=== PATIENT | male | born 1940 | race Caucasian/White ===

== ENCOUNTER 2018-02-18 15:07 | Inpatient (IN) | payer MEDICARE, OTHER ==
[~2018-02-18] VITALS: Ht 172.7 cm; Wt 79.8 kg
[~2018-02-18 15:07] MED LIST: MIDAZOLAM 1 MG/ML, 5ML ONE; PROPOFOL 10 MG/ML, 100ML IV ONE; ROCURONIUM 10 MG/ML,10ML ONE
[2018-02-18] MEDS ORDERED: SODIUM CHLORIDE FLUSH 10ML SYR IVF ONE (15:30)
[2018-02-18] MEDS ORDERED: methylPREDNISolone SOD SUCC 125 MG/2 ML IVP ONE (15:30)
[2018-02-18 15:55] LABS: ALANINE AMINOTRANSFERASE 49 U/L (12-78); ALBUMIN 3.4 g/dL (3.4-5.0); ANION GAP 8 mmol/L (5-15); CALCIUM 7.9 mg/dL (8.5-10.1); CHLORIDE 106 mmol/L (98-107); CREATININE 2.55 mg/dL (0.7-1.3)
[2018-02-18 15:59] LABS: INTERNATIONAL NORMALIZED RATIO 1.51 (0.93-1.1); PROTHROMBIN TIME 15.6 Seconds (9.6-11.5)
[2018-02-18 15:59] LABS: ALKALINE PHOSPHATASE 104 U/L (45-117); TOTAL PROTEIN 7.1 g/dL (6.4-8.2)
[2018-02-18 16:00] LABS: MEAN CORPUSCULAR HEMOGLOBIN 31.2 pg (27.5-34.5); MEAN CORPUSCULAR HGB CONC 31.5 g/dL (33.2-36.2); MEAN CORPUSCULAR VOLUME 99.1 fL (81-97); MEAN PLATELET VOLUME 9.3 fL (7.4-10.4); PLATELET COUNT 122 x10^3/uL (130-400); RED BLOOD COUNT 5.76 x10^6/uL (4.38-5.82)
[2018-02-18 16:06] LABS: TROPONIN I 0.259 ng/mL (0.000-0.045)
[2018-02-18] MEDS ORDERED: AMLO5TAB2 PO (16:10)
[2018-02-18 16:13] LABS: ANISOCYTOSIS 1+; BASOPHILS # (AUTO) 0.01 x10^3/uL (0-0.1); BASOPHILS % (AUTO) 0 % (0-1); EOSINOPHILS % (AUTO) 0 % (1-7); LYMPHOCYTES # (AUTO) 1.17 x10^3/uL (1-3.4); LYMPHOCYTES % (AUTO) 12 % (22-44); MD MORPH REVIEW ONLY; MONOCYTES # (AUTO) 0.67 x10^3/uL (0.2-0.8); MONOCYTES % (AUTO) 7 % (2-9); NEUTROPHILS # (AUTO) 7.93 x10^3/uL (1.8-6.8); NEUTROPHILS % (AUTO) 81 % (42-75); POLYCHROMASIA 1+; RED CELL DISTRIBUTION WIDTH 16.5 % (9.4-14.8)
[2018-02-18 16:14] LABS: <PLATELET ESTIMATE> ADEQUATE; <PLT MORPHOLOGY> NORMAL PLT MORPH
[2018-02-18] MEDS ORDERED: SODIUM CHLORIDE FLUSH 10ML SYR IVF PRN (17:00)
[2018-02-18] MEDS: methylPREDNISolone SOD SUCC 125 MG/2 ML IVPush SCH ×2 (18:00→22:32)
[2018-02-18] MEDS ORDERED: FENTANYL PF 100 MCG/2ML ONE (19:13)
[2018-02-18] MEDS ORDERED: PROPOFOL 100 ML IV PRN (19:42)
[2018-02-18] MEDS ORDERED: ACETAMINOPHEN 325 MG TABLET PO PRN (20:00)
[2018-02-18] MEDS ORDERED: LACTULOSE 20 GM/30 ML UDC NG PRN (20:00)
[2018-02-18] MEDS ORDERED: LIDOCAINE-MPF 1%, 2ML ENDO PRN (20:00)
[2018-02-18] MEDS ORDERED: POLYETHYLENE GLYCOL 17 GM PACKET PO PRN (20:00)
[2018-02-18] MEDS ORDERED: BISACODYL 10 MG SUPP PR PRN ×2 (20:00)
[2018-02-18] MEDS ORDERED: DOCUSATE 100 MG CAPSULE PO PRN (20:00)
[2018-02-18] MEDS ORDERED: SENNA/DOCUSATE TABLET NG PRN (20:00)
[2018-02-18] MEDS ORDERED: SENNOSIDES 8.8 MG/5 ML ORAL SOL NG PRN (20:00)
[2018-02-18] MEDS ORDERED: PHARMACY MAY ADJ FOR RENAL FX MC SCH (20:00)
[2018-02-18] MEDS ORDERED: hydrALAzine 20 MG/ML, 1ML IVPush PRN (20:00)
[2018-02-18] MEDS ORDERED: FENTANYL PF 100 MCG/2ML IVPush PRN (20:00)
[2018-02-18 20:34] LABS: TROPONIN I 0.235 ng/mL (0.000-0.045)
[2018-02-18] MEDS ORDERED: FAMOTIDINE 20 MG/2 ML IVPush SCH (21:00)
[2018-02-18] MEDS ORDERED: CEFTRIAXONE 2 GM in SODIUM CHLORIDE 0.9% 50 ML IV SCH (21:00)
[2018-02-18] MEDS: HEPARIN 5,000 UNITS/ML, 1ML SQ SCH (22:33)
[2018-02-18] MEDS: CEFTRIAXONE 2 GM in DEXTROSE 5% 50 ML IV SCH (22:34)
[2018-02-18] MEDS: ALBUTEROL/IPRATROPIUM 2.5MG/0.5MG, 3 ML INLINE SCH (23:00)
[2018-02-18] MEDS: AZITHROMYCIN 500 MG in SODIUM CHLORIDE 0.9% 250 ML IV SCH (23:25)
[2018-02-19] MEDS ORDERED: THIAMINE 200 MG in SODIUM CHLORIDE 0.9% 50 ML IV ONE (01:30)
[2018-02-19 01:42] VITALS: BP 101/58
[2018-02-19] MEDS: methylPREDNISolone SOD SUCC 125 MG/2 ML IVPush SCH ×5 (02:15→20:59)
[2018-02-19] MEDS: ALBUTEROL/IPRATROPIUM 2.5MG/0.5MG, 3 ML INLINE SCH ×6 (03:00→21:00)
[2018-02-19 03:05] LABS: BASOPHILS % (AUTO) 0 % (0-1); EOSINOPHILS % (AUTO) 0 % (1-7); LYMPHOCYTES # (AUTO) 0.58 x10^3/uL (1-3.4); LYMPHOCYTES % (AUTO) 8 % (22-44); MD NO; MEAN CORPUSCULAR HGB CONC 32.9 g/dL (33.2-36.2); MEAN CORPUSCULAR VOLUME 97.2 fL (81-97); MEAN PLATELET VOLUME 9.7 fL (7.4-10.4); MONOCYTES % (AUTO) 3 % (2-9); NEUTROPHILS % (AUTO) 89 % (42-75); PLATELET COUNT 107 x10^3/uL (130-400); RED BLOOD COUNT 5.06 x10^6/uL (4.38-5.82); RED CELL DISTRIBUTION WIDTH 15.8 % (9.4-14.8)
[2018-02-19 03:13] LABS: TROPONIN I 0.258 ng/mL (0.000-0.045)
[2018-02-19 03:14] LABS: ALANINE AMINOTRANSFERASE 40 U/L (12-78); ALBUMIN 2.6 g/dL (3.4-5.0); ANION GAP 13 mmol/L (5-15); CALCIUM 7.7 mg/dL (8.5-10.1); CHLORIDE 106 mmol/L (98-107)
[2018-02-19 03:17] LABS: ALKALINE PHOSPHATASE 80 U/L (45-117); BILIRUBIN,TOTAL 0.8 mg/dL (0.2-1.0); TOTAL PROTEIN 5.4 g/dL (6.4-8.2)
[2018-02-19 03:45] VITALS: BP 124/72
[2018-02-19] MEDS: HEPARIN 5,000 UNITS/ML, 1ML SQ SCH ×3 (04:52→20:59)
[2018-02-19] MEDS: PANTOPRAZOLE 40 MG IV IV SCH (08:53)
[2018-02-19] MEDS: ASPIRIN 81 MG TABLET CHEW PO SCH (08:53)
[2018-02-19] MEDS: CEFTRIAXONE 2 GM in DEXTROSE 5% 50 ML IV SCH (20:59)
[2018-02-19] MEDS: AZITHROMYCIN 500 MG in SODIUM CHLORIDE 0.9% 250 ML IV SCH (23:02)
[2018-02-20] MEDS: ALBUTEROL/IPRATROPIUM 2.5MG/0.5MG, 3 ML INLINE SCH ×7 (01:00→22:00)
[2018-02-20] MEDS: methylPREDNISolone SOD SUCC 125 MG/2 ML IVPush SCH ×4 (03:03→20:22)
[2018-02-20] MEDS: HEPARIN 5,000 UNITS/ML, 1ML SQ SCH ×3 (03:03→20:22)
[2018-02-20 04:50] LABS: BASOPHILS # (AUTO) 0.04 x10^3/uL (0-0.1); BASOPHILS % (AUTO) 0 % (0-1); EOSINOPHILS # (AUTO) 0.01 x10^3/uL (0-0.4); EOSINOPHILS % (AUTO) 0 % (1-7); LYMPHOCYTES # (AUTO) 0.26 x10^3/uL (1-3.4); LYMPHOCYTES % (AUTO) 2 % (22-44); MD NO; MEAN CORPUSCULAR HEMOGLOBIN 31.4 pg (27.5-34.5); MEAN CORPUSCULAR HGB CONC 32.6 g/dL (33.2-36.2); MEAN CORPUSCULAR VOLUME 96.4 fL (81-97); MEAN PLATELET VOLUME 9.1 fL (7.4-10.4); MONOCYTES # (AUTO) 0.35 x10^3/uL (0.2-0.8); MONOCYTES % (AUTO) 3 % (2-9); NEUTROPHILS # (AUTO) 11.04 x10^3/uL (1.8-6.8); NEUTROPHILS % (AUTO) 94 % (42-75); PLATELET COUNT 110 x10^3/uL (130-400); RED BLOOD COUNT 4.74 x10^6/uL (4.38-5.82); RED CELL DISTRIBUTION WIDTH 15.7 % (9.4-14.8)
[2018-02-20 04:58] LABS: ANION GAP 11 mmol/L (5-15); CALCIUM 7.5 mg/dL (8.5-10.1); CHLORIDE 110 mmol/L (98-107); CREATININE 2.25 mg/dL (0.7-1.3)
[2018-02-20] MEDS: PANTOPRAZOLE 40 MG IV IV SCH (08:07)
[2018-02-20] MEDS: ASPIRIN 81 MG TABLET CHEW PO SCH (08:08)
[2018-02-20] MEDS: THIAMINE 100MG TABLET PO SCH (08:08)
[2018-02-20] MEDS: CEFTRIAXONE 2 GM in DEXTROSE 5% 50 ML IV SCH (20:22)
[2018-02-20] MEDS: AZITHROMYCIN 500 MG in SODIUM CHLORIDE 0.9% 250 ML IV SCH (21:45)
[2018-02-21] MEDS: methylPREDNISolone SOD SUCC 125 MG/2 ML IVPush SCH (01:49)
[2018-02-21] MEDS: ALBUTEROL/IPRATROPIUM 2.5MG/0.5MG, 3 ML INLINE SCH ×3 (02:00→10:00)
[2018-02-21 03:40] VITALS: BP 108/56
[2018-02-21] MEDS: HEPARIN 5,000 UNITS/ML, 1ML SQ SCH ×3 (04:03→20:21)
[2018-02-21 04:26] LABS: BASOPHILS # (AUTO) 0.03 x10^3/uL (0-0.1); BASOPHILS % (AUTO) 0 % (0-1); EOSINOPHILS % (AUTO) 0 % (1-7); LYMPHOCYTES # (AUTO) 0.25 x10^3/uL (1-3.4); LYMPHOCYTES % (AUTO) 2 % (22-44); MD NO; MEAN CORPUSCULAR HEMOGLOBIN 31.3 pg (27.5-34.5); MEAN CORPUSCULAR HGB CONC 32.7 g/dL (33.2-36.2); MEAN CORPUSCULAR VOLUME 95.5 fL (81-97); MEAN PLATELET VOLUME 9.6 fL (7.4-10.4); MONOCYTES # (AUTO) 0.47 x10^3/uL (0.2-0.8); MONOCYTES % (AUTO) 4 % (2-9); NEUTROPHILS # (AUTO) 12.48 x10^3/uL (1.8-6.8); NEUTROPHILS % (AUTO) 94 % (42-75); PLATELET COUNT 114 x10^3/uL (130-400); RED BLOOD COUNT 4.73 x10^6/uL (4.38-5.82); RED CELL DISTRIBUTION WIDTH 15.9 % (9.4-14.8)
[2018-02-21 04:41] LABS: ANION GAP 10 mmol/L (5-15); CALCIUM 7.5 mg/dL (8.5-10.1); CHLORIDE 111 mmol/L (98-107)
[2018-02-21 04:50] LABS: CREATININE 1.86 mg/dL (0.7-1.3); TRIGLYCERIDES 92 mg/dL (50-200)
[2018-02-21] MEDS ORDERED: FUROSEMIDE 40 MG/4 ML IV ONE (08:00)
[2018-02-21] MEDS ORDERED: POTASSIUM CHLORIDE 10% 20 MEQ/15 ML UDC PO ONE (08:00)
[2018-02-21] MEDS: THIAMINE 100MG TABLET PO SCH (09:00)
[2018-02-21] MEDS: PANTOPRAZOLE 40 MG IV IV SCH (09:00)
[2018-02-21] MEDS: methylPREDNISolone SOD SUCC 40 MG/ML IVPush SCH ×2 (09:00→20:21)
[2018-02-21] MEDS: ASPIRIN 81 MG TABLET CHEW PO SCH (09:01)
[2018-02-21] MEDS: ALBUTEROL/IPRATROPIUM 2.5MG/0.5MG, 3 ML NPPB SCH ×2 (12:30→15:00)
[2018-02-21] MEDS: CEFTRIAXONE 2 GM in DEXTROSE 5% 50 ML IV SCH (20:21)
[2018-02-21] MEDS: AZITHROMYCIN 500 MG in SODIUM CHLORIDE 0.9% 250 ML IV SCH (22:40)
[2018-02-22] MEDS: HEPARIN 5,000 UNITS/ML, 1ML SQ SCH (03:37)
[2018-02-22 04:00] VITALS: BP 98/67
[2018-02-22 04:53] LABS: ANION GAP 8 mmol/L (5-15); CALCIUM 7.8 mg/dL (8.5-10.1); CHLORIDE 109 mmol/L (98-107); CREATININE 1.84 mg/dL (0.7-1.3)
[2018-02-22 06:47] LABS: BASOPHILS % (AUTO) 0 % (0-1); EOSINOPHILS % (AUTO) 0 % (1-7); LYMPHOCYTES # (AUTO) 0.27 x10^3/uL (1-3.4); LYMPHOCYTES % (AUTO) 2 % (22-44); MD SCAN; MEAN CORPUSCULAR HGB CONC 32.2 g/dL (33.2-36.2); MEAN CORPUSCULAR VOLUME 99.5 fL (81-97); MEAN PLATELET VOLUME 9.9 fL (7.4-10.4); MONOCYTES # (AUTO) 0.44 x10^3/uL (0.2-0.8); MONOCYTES % (AUTO) 3 % (2-9); NEUTROPHILS % (AUTO) 95 % (42-75); PLATELET COUNT 98 x10^3/uL (130-400); RED BLOOD COUNT 4.94 x10^6/uL (4.38-5.82); RED CELL DISTRIBUTION WIDTH 16.8 % (9.4-14.8)
[2018-02-22] MEDS: THIAMINE 100MG TABLET PO SCH (09:24)
[2018-02-22] MEDS: ASPIRIN 81 MG TABLET CHEW PO SCH (09:24)
[2018-02-22] MEDS: PANTOPRAZOLE 40 MG IV IV SCH (09:24)
[2018-02-22 10:30] LABS: HIT RESULT POSITIVE (NEGATIVE)
[2018-02-22] MEDS ORDERED: ALBUTEROL/IPRATROPIUM 2.5MG/0.5MG, 3 ML NPPB PRN (15:00)
[2018-02-22] MEDS ORDERED: FUROSEMIDE 40 MG/4 ML IV ONE (17:30)
[2018-02-22] MEDS: CEFTRIAXONE 2 GM in DEXTROSE 5% 50 ML IV SCH (21:09)
[2018-02-22] MEDS: AZITHROMYCIN 500 MG in SODIUM CHLORIDE 0.9% 250 ML IV SCH (22:17)
[2018-02-23 03:34] LABS: ANION GAP 6 mmol/L (5-15); CALCIUM 7.4 mg/dL (8.5-10.1); CHLORIDE 106 mmol/L (98-107); CREATININE 1.71 mg/dL (0.7-1.3)
[2018-02-23 04:13] LABS: MEAN CORPUSCULAR HEMOGLOBIN 31.7 pg (27.5-34.5); MEAN CORPUSCULAR HGB CONC 31.9 g/dL (33.2-36.2); MEAN CORPUSCULAR VOLUME 99.5 fL (81-97); RED BLOOD COUNT 4.27 x10^6/uL (4.38-5.82); RED CELL DISTRIBUTION WIDTH 16.7 % (9.4-14.8)
[2018-02-23 04:43] VITALS: BP 99/69
[2018-02-23 05:02] LABS: BASOPHILS # (AUTO) 0.02 x10^3/uL (0-0.1); BASOPHILS % (AUTO) 0 % (0-1); EOSINOPHILS % (AUTO) 0 % (1-7); LYMPHOCYTES # (AUTO) 0.84 x10^3/uL (1-3.4); LYMPHOCYTES % (AUTO) 8 % (22-44); MD SCAN; MEAN PLATELET VOLUME 9.5 fL (7.4-10.4); MONOCYTES # (AUTO) 0.93 x10^3/uL (0.2-0.8); MONOCYTES % (AUTO) 9 % (2-9); NEUTROPHILS # (AUTO) 8.71 x10^3/uL (1.8-6.8); NEUTROPHILS % (AUTO) 83 % (42-75); PLATELET COUNT 74 x10^3/uL (130-400)
[2018-02-23] MEDS ORDERED: FONDAPARINUX 2.5 MG/0.5 ML SQ SCH (09:00)
[2018-02-23] MEDS: ASPIRIN 81 MG TABLET CHEW PO SCH (09:00)
[2018-02-23] MEDS: PANTOPRAZOLE 40 MG IV IV SCH (09:00)
[2018-02-23] MEDS: THIAMINE 100MG TABLET PO SCH (09:00)
== END 2018-02-23 14:30 | disposition hospice, home (50) | DRG 208 ==
LOC: ED 16:35 → EDIP 16:36 → ED 17:14 → CCU 18:39
PROVIDERS: ADMIT Hospitalist; ATTEND Hospitalist
PROC: 5A1945Z Respiratory Ventilation, 24-96 Consecutive Hours (ICD-10-PCS; principal; 2018-02-18)
PROC: 02HV33Z Insertion of Infusion Device into Superior Vena Cava, Percutaneous Approach (ICD-10-PCS; 2018-02-18)
PROC: 0BH17EZ Insertion of Endotracheal Airway into Trachea, Via Natural or Artificial Opening (ICD-10-PCS; 2018-02-18)
PROC: 5A09357 Assistance with Respiratory Ventilation, Less than 24 Consecutive Hours, Continuous Positive Airway Pressure (ICD-10-PCS; 2018-02-18)
PROC: 5A09357 Assistance with Respiratory Ventilation, Less than 24 Consecutive Hours, Continuous Positive Airway Pressure (ICD-10-PCS; 2018-02-23)
DX: J96.01 Acute respiratory failure with hypoxia (principal); I21.4 Non-ST elevation (NSTEMI) myocardial infarction; N17.0 Acute kidney failure with tubular necrosis; E43 Unspecified severe protein-calorie malnutrition; Z99.11 Dependence on respirator [ventilator] status; D69.6 Thrombocytopenia, unspecified; I50.43 Acute on chronic combined systolic (congestive) and diastolic (congestive) heart failure; E87.2 Acidosis; E77.8 Other disorders of glycoprotein metabolism; I42.9 Cardiomyopathy, unspecified; I13.0 Hypertensive heart and chronic kidney disease with heart failure and stage 1 through stage 4 chronic kidney disease, or unspecified chronic kidney disease; J44.1 Chronic obstructive pulmonary disease with (acute) exacerbation; R18.8 Other ascites; I47.1 Supraventricular tachycardia; F17.210 Nicotine dependence, cigarettes, uncomplicated; I71.6 Thoracoabdominal aortic aneurysm, without rupture; I72.3 Aneurysm of iliac artery; I77.1 Stricture of artery; N18.9 Chronic kidney disease, unspecified; Z51.5 Encounter for palliative care; Z66 Do not resuscitate; Z80.3 Family history of malignant neoplasm of breast; Z80.7 Family history of other malignant neoplasms of lymphoid, hematopoietic and related tissues; Z80.8 Family history of malignant neoplasm of other organs or systems; Z68.26 Body mass index [BMI] 26.0-26.9, adult
CPT/HCPCS: 36415; 36600; 71045; 71250; 74176; 76770; 80048; 80053; 82803; 83605; 83735; 83880; 84100; 84478; 84484; 85014; 85018; 85025; 85610; 85730; 86022; 87040; 87070; 87081; 87205; 87252; 93005; 93306; 93970; 94002; 94003; 94640; 94660; 96374; J0456; J0696; J1644; J1940; J2250; J2704; J3411; J7620; C9113; J2920; J2930; J7050; S0028